=== PATIENT | female | born 1995 | race Caucasian/White ===

== ENCOUNTER 2020-04-11 15:57 | Emergency (ER) | payer BC, MEDICAID, OTHER ==
[~2020-04-11] VITALS: Ht 152.4 cm; Wt 63.5 kg
[2020-04-11 17:10] VITALS: BP_SYST 141
[2020-04-11 18:15] VITALS: BP_SYST 134
== END 2020-04-11 18:15 | disposition home or self-care (01) ==
LOC: SED 15:57
DX: N93.8 Other specified abnormal uterine and vaginal bleeding (principal); F41.9 Anxiety disorder, unspecified; Z86.2 Personal history of diseases of the blood and blood-forming organs and certain disorders involving the immune mechanism
CPT/HCPCS: 81002; 99283